=== PATIENT | female | born 1965 | race Caucasian/White ===

== ENCOUNTER 2016-07-11 01:01 | Emergency (ER) | payer MEDICARE, OTHER ==
[~2016-07-11 01:01] MED LIST: VITAMIN D22000 UNIT PO
== END 2016-07-11 10:42 | disposition home or self-care (01) ==
LOC: ER1 01:01
DX: S63.502A Unspecified sprain of left wrist, initial encounter (principal); S80.02XA Contusion of left knee, initial encounter; S80.01XA Contusion of right knee, initial encounter; S60.222A Contusion of left hand, initial encounter; S60.221A Contusion of right hand, initial encounter; S80.811A Abrasion, right lower leg, initial encounter; W18.09XA Striking against other object with subsequent fall, initial encounter; Y92.009 Unspecified place in unspecified non-institutional (private) residence as the place of occurrence of the external cause
CPT/HCPCS: 29125; 73110; 73130; 73522; 73564; 73590; 96372; 99284; J2270

== ENCOUNTER 2016-09-08 07:02 | Emergency (ER) | payer MEDICARE, OTHER | END 2016-09-08 08:55 | disposition home or self-care (01) | LOC: ER1 07:02 | DX: S46.911A Strain of unspecified muscle, fascia and tendon at shoulder and upper arm level, right arm, initial encounter (principal); Z88.5 Allergy status to narcotic agent; Z88.8 Allergy status to other drugs, medicaments and biological substances; X50.0XXA Overexertion from strenuous movement or load, initial encounter | CPT/HCPCS: 73030; 96372; 99283; J1885 ==

== ENCOUNTER → 2020-09-29 | Outpatient (CLI) | payer MEDICARE, OTHER ==
[~2020-09-29] MED LIST changes: +CALCIUM PO; +CENTRUM SILVER1 EAC4 PO; +FLECTOR1 EACH TD; +GABAPENTIN600 MG PO; +IBUPROFEN600 MG PO; +LEXAPRO20 MG PO; +NORCO 7.5-3251 EACH PO; +NORTHERA300 MG PO; +NORTRIPTYLINE H75 MG PO; +ONE DAILY1 EACH PO; +PAMELOR75 MG PO; +PHENERGAN 25 MG25 M1 PO; +PSEUDOEPHEDRIN120 MG PO; +RANITIDINE HCL300 MG PO; +REXULTI PO; +TOPAMAX200 MG PO; +VITAMIN B-121000 MCG PO; +VITAMIN C; +VITAMIN D PO; -VITAMIN D22000 UNIT PO; +VITAMIN D35000 UNI1 PO; +VITAMIN K PO; +ZANAFLEX4 MG PO
== END ==
LOC: RAD 09:39
PROC: BP0 Imaging, Non-Axial Upper Bones, Plain Radiography (ICD-10-PCS; principal; 2020-09-29)
DX: M25.511 Pain in right shoulder (principal)
CPT/HCPCS: 73040; 73201; Q9967

== ENCOUNTER 2021-08-27 17:51 | Emergency (ER) | payer MEDICARE, OTHER ==
[2021-08-27 19:48] LABS: HEMOGLOBIN 8.4 gm/dl (12.3-15.3); RED BLOOD COUNT 3.48 M/UL (4.00-5.10); WHITE BLOOD COUNT 6.8 K/UL (4.5-11.0)
[2021-08-27 20:06] LABS: BUN/CREATININE RATIO 23 (0-10)
== END 2021-08-27 22:53 | disposition home or self-care (01) ==
LOC: ER1 17:51
PROVIDERS: Family Medicine
DX: M25.422 Effusion, left elbow (principal); Z98.84 Bariatric surgery status; W01.0XXA Fall on same level from slipping, tripping and stumbling without subsequent striking against object, initial encounter; Y92.009 Unspecified place in unspecified non-institutional (private) residence as the place of occurrence of the external cause
CPT/HCPCS: 73080; 80053; 85025; 96374; 99283; J1170

== ENCOUNTER → 2021-12-29 | Outpatient (CLI) | payer MEDICARE, OTHER | LOC: KOH-I 08:00 | DX: S92.102A Unspecified fracture of left talus, initial encounter for closed fracture (principal); S82.52XA Displaced fracture of medial malleolus of left tibia, initial encounter for closed fracture; X58.XXXA Exposure to other specified factors, initial encounter | CPT/HCPCS: 73700 ==